=== PATIENT | female | born 1995 | race Caucasian/White ===

== ENCOUNTER 2025-05-09 09:42 | Inpatient (IN) | payer OTHER ==
[2025-05-09 10:09] VITALS: BMI 22.6
[2025-05-09] MEDS ORDERED: DICYCLOMINE HCL 10 MG CAPSULE PO PRN (10:30)
[2025-05-09] MEDS ORDERED: MAGNESIUM HYDROX 2400MG/30ML ORAL SUSPENSION 30 ML CUP PO PRN (10:30)
[2025-05-09] MEDS ORDERED: MAG HYDROX/AL HYDROX/SIMETH 30 ML UNIT-DOSE CUP PO PRN (10:30)
[2025-05-09] MEDS ORDERED: IBUPROFEN 600 MG TABLET (FP) PO PRN (10:30)
[2025-05-09] MEDS ORDERED: NALOXONE (NARCAN) HCL 4 MG/0.1 ML SPRAY NS PRN (10:30)
[2025-05-09] MEDS ORDERED: BENZOCAINE/MENTHOL (CHLORASEPTIC ) LOZENGE MM PRN (10:30)
[2025-05-09] MEDS ORDERED: NICOTINE POLACRILEX 2 MG LOZENGE BC PRN (10:30)
[2025-05-09] MEDS ORDERED: guaiFENesin 600 MG TABLET.ER (FP) PO PRN (10:30)
[2025-05-09] MEDS ORDERED: BENZONATATE 200 MG CAPSULE PO PRN (10:30)
[2025-05-09] MEDS ORDERED: LOPERAMIDE HCL 2 MG CAPSULE PO PRN (10:30)
[2025-05-09] MEDS ORDERED: NICOTINE POLACRILEX 2 MG GUM BUC PRN (10:30)
[2025-05-09] MEDS ORDERED: POLYETHYLENE GLYCOL (HEALTHYLAX) 3350 17 GM PACKET PO PRN (10:30)
[2025-05-09] MEDS ORDERED: ACETAMINOPHEN 325 MG TABLET (FP) PO PRN (10:30)
[2025-05-09] MEDS ORDERED: IBUPROFEN 400 MG TABLET (FP) PO PRN (10:30)
[2025-05-09] MEDS ORDERED: BISMUTH SUBSALICYLATE 524 MG/30 ML PO PRN (10:30)
[2025-05-09] MEDS ORDERED: levETIRAcetam 500 MG TABLET (FP) PO ONE (11:09)
[2025-05-09] MEDS: levETIRAcetam 500 MG TABLET (FP) PO SCH (11:10)
[2025-05-09] MEDS: hydrOXYzine PAMOATE 25 MG CAPSULE (FP) PO PRN (17:18)
[2025-05-09] MEDS: THIAMINE 100 MG TABLET PO SCH (22:45)
[2025-05-09] MEDS: METHOCARBAMOL 500 MG TABLET PO PRN (22:45)
[2025-05-09] MEDS: MELATONIN 5 MG TABLETS PO SCH (22:46)
[2025-05-10] MEDS: PRENATAL VITAMINS W/ FOLIC ACID TABLET (FP) PO SCH (10:14)
[2025-05-10 12:23] LABS: MCHC 32.1 g/dl (32.2-35.5); MEAN CELL VOLUME 95.2 fl (79.4-94.8); MEAN PLT VOLUME 9.4 fl (9.4-12.3); RDW 13.5 % (12.1-16.5)
[2025-05-10 12:39] LABS: CO2 26 mmol/L (21-32); GLUCOSE,RANDOM 119 mg/dL (74-106)
[2025-05-10 12:41] LABS: SGPT/ALT 34 U/L (13-61)
[2025-05-10 12:42] LABS: CREATININE 0.7 mg/dL (0.55-1.3); SGOT/AST 47 U/L (15-37)
[2025-05-10 12:43] LABS: TOT PROT 6.4 g/dl (6.4-8.2)
[2025-05-10 12:44] LABS: ALK PHOS 96 U/L (45-117)
[2025-05-10] MEDS: ONDANSETRON *ODT* 4 MG TABLET SL PRN (17:54)
[2025-05-10 21:40] VITALS: RESP 16
[2025-05-11 08:53] VITALS: BP 103/66; PULSE 68; TEMP 97.7
[2025-05-11] MEDS: ACAMPROSATE CALCIUM 333 MG TABLET.DR PO SCH (10:21)
== END 2025-05-11 10:30 | disposition home or self-care (01) | DRG 775 ==
LOC: EDBD → YASAS 09:42 → Y6N 11:07
PROVIDERS: ADMIT Neuromusculoskeletal Medicine & OMM; ATTEND Allergy & Immunology
PROC: HZ2ZZZZ Detoxification Services for Substance Abuse Treatment (ICD-10-PCS; principal; 2025-05-09)
DX: F10.230 Alcohol dependence with withdrawal, uncomplicated (principal); F17.210 Nicotine dependence, cigarettes, uncomplicated; Z59.00 Homelessness unspecified
CPT/HCPCS: 36415; 80053; 80305; 80307; 81025; 85027; 86780; 93005; 93010; Q0162